=== PATIENT | female | born 1995 | race Caucasian/White ===

== ENCOUNTER 2023-11-25 14:02 | Emergency (ER) | payer OTHER ==
[~2023-11-25] VITALS: Ht 175.3 cm; Wt 113.4 kg
[2023-11-25 14:04] VITALS: BP 158/95; PULSE 97; RESP 18; TEMP 98.2; O2SAT 100
[2023-11-25] MEDS ORDERED: NACL 0.9% 1,000 ML IV ONE (14:30)
[2023-11-25] MEDS ORDERED: KETOROLAC 30 MG/ML VIAL IVP ONE (14:30)
[2023-11-25] MEDS ORDERED: METOCLOPRAMIDE 10 MG/2 ML INJ VIAL IVP ONE (14:30)
[2023-11-25] MEDS ORDERED: diphenhydrAMINE 50 MG/ML VIAL IVP ONE (14:30)
[2023-11-25] MEDS ORDERED: ACET-10509 PO (14:49)
[2023-11-25] MEDS: ACETAMINOPHEN EXTRA STRENGTH 500 MG TAB PO ONE (15:05)
[2023-11-25 15:20] VITALS: BP 158/95; PULSE 97; RESP 18; TEMP 98.2; O2SAT 100
== END 2023-11-25 15:20 | disposition home or self-care (01) ==
LOC: MED 14:02
DX: O29.41 Spinal and epidural anesthesia induced headache during pregnancy, first trimester (principal); O10.911 Unspecified pre-existing hypertension complicating pregnancy, first trimester; O24.311 Unspecified pre-existing diabetes mellitus in pregnancy, first trimester; Z3A.00 Weeks of gestation of pregnancy not specified; Z79.1 Long term (current) use of non-steroidal anti-inflammatories (NSAID); Z88.0 Allergy status to penicillin
CPT/HCPCS: 81002; 81025; 99282